=== PATIENT | female | born 1990 | race Caucasian/White ===

== ENCOUNTER 2021-07-13 14:05 | Emergency (ER) | payer OTHER ==
[~2021-07-13] VITALS: Ht 154.9 cm; Wt 82.3 kg
[~2021-07-13 14:05] MED LIST: PREN-385 PO
[2021-07-13 14:12] VITALS: BP 120/80
--- NOTE | 2021-07-13 14:17 | NUR ---
PT AMB TO BED 12.
--- NOTE | 2021-07-13 14:24 | NUR ---
31 Y/O FEMALE C/O RIGHT BIG TOE INGROWN TOENAIL X 1 MONTH. PT STATES PAIN 8/10 DESCRIBES THROBBING AND ACHING NON-RADIATING. DENIES FEVER/CHILLS. DENIES N/V. DENIES PMH NKA
[2021-07-13] MEDS ORDERED: KETOROLAC 30 MG/ML VIAL IM ONE (14:30)
[2021-07-13] MEDS ORDERED: LIDOCAINE MPF 1% 10 MG/ML VIAL INJ ONE (14:30)
[2021-07-13] MEDS ORDERED: CEPH-588 PO (15:18)
[2021-07-13] MEDS ORDERED: NAPR-54 PO (15:18)
[2021-07-13] MEDS ORDERED: BACITRACIN OINT 500 UNITS/GM PKT TP ONE (15:20)
[2021-07-13 15:33] VITALS: BP 120/80
--- NOTE | 2021-07-13 15:33 | NUR ---
Patient discharged with v/s stable. Written and verbal after care instructions given INGROWN TOENAIL and explained. Patient alert, oriented and verbalized understanding of instructions. Ambulatory with steady gait. All questions addressed prior to discharge. ID band removed. Patient advised to follow up with PMD. Rx of BACITRACIN AND KEFLEX given. Patient educated on indication of medication including possible reaction and side effects. Opportunity to ask questions provided and answered.
== END 2021-07-13 15:33 | disposition home or self-care (01) ==
LOC: MED 14:05
DX: L60.0 Ingrowing nail (principal); Z79.899 Other long term (current) drug therapy
CPT/HCPCS: 11730; 96372; 99284; J1885; J2001

== ENCOUNTER 2022-07-18 22:29 | Emergency (ER) | payer OTHER ==
[~2022-07-18] VITALS: Ht 154.9 cm; Wt 77.1 kg
[~2022-07-18 22:29] MED LIST changes: +CEPH-588 PO; +NAPR-54 PO
[2022-07-18 22:40] VITALS: BP 135/80
--- NOTE | 2022-07-18 22:43 | NUR ---
TO LOBBY A/W BED AMBULATORY
[2022-07-18 22:48] VITALS: BP 135/80
--- NOTE | 2022-07-18 22:50 | NUR ---
SEEN AND EXAMINED BY PA
[2022-07-18] MEDS ORDERED: BACITRACIN OINT 500 UNITS/GM PKT TP ONE (23:00)
[2022-07-18] MEDS ORDERED: LIDOCAINE MPF 1% 10 MG/ML VIAL INJ ONE (23:00)
[2022-07-18] MEDS ORDERED: NAPR-54 PO (23:47)
[2022-07-18] MEDS ORDERED: CEPH-588 PO (23:47)
[2022-07-18] MEDS ORDERED: BACI-416 TP (23:48)
--- NOTE | 2022-07-18 23:57 | NUR ---
PATIENT DISCHARGED, INSTRUCTIONS PROVIDED. PATIENT AMBULATORY
== END 2022-07-18 23:57 | disposition home or self-care (01) ==
LOC: MED 22:29
DX: L60.0 Ingrowing nail (principal); Z79.899 Other long term (current) drug therapy
CPT/HCPCS: 11730; 99284